=== PATIENT | female | born 1970 | race Caucasian/White ===

== ENCOUNTER 2017-02-01 05:23 | Day surgery (SDC) | payer OTHER ==
[~2017-02-01] VITALS: Ht 162.6 cm; Wt 87.5 kg
--- NOTE | ~2017-02-01 | H ---
[facility] [place] [address] HISTORY AND PHYSICAL Name: SAMMY LUNA Room #: 150-1 [facility] M.R.#: [id number] Admission: 02/01/17 Attend Phys: Manan Moore MD Discharge: Date of : 74 Report #: [id number] THIS REPORT FOR: //name// CC: Jenny Moore DATE OF SERVICE: 02/01/2017 Her procedure is scheduled for 02/01/2017. The patient suffered an injury to her face in mid October. A CT scan in the Emergency Room confirmed nasal fracture. For insurance purposes, she was denied care by another ENT doctor and it has been 17 weeks since her surgery, she has difficulty breathing through her nose and she has a deformity of the nasal dorsum. PAST MEDICAL HISTORY: Otherwise significant for diabetes and high blood pressure. ALLERGIES: She is allergic to CIPRO. PHYSICAL EXAMINATION: She has a depressed left nasal bone fracture and hourly displaced right nasal bone fracture with a C shape to the nasal dorsum. The bones are solid and healed at this point. She has a deviated nasal septum to the left side anteriorly and into the middle meatus on the right side. IMPRESSION: Nasal fracture, nasal septal fracture, deviated nasal septum. PLAN: Nasal septoplasty and an attempt at closed nasal reduction. <ELECTRONICALLY SIGNED> By: Manan Moore MD 02/01/17 0821 [id number] [id number] Manan Moore MD /robert
--- NOTE | ~2017-02-01 | EKG ---
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
--- NOTE | ~2017-02-01 | O ---
[facility] [place] [address] OPERATIVE REPORT Name: SAMMY LUNA Room #: DEP [facility] M.R.#: [id number] Admission: 02/01/17 Attend Phys: Manan Moore MD Discharge: 02/01/17 Date of : 74 Report #: [id number] THIS REPORT FOR: //name// CC: Jenny Moore DATE OF SERVICE: 02/01/2017 PREOPERATIVE DIAGNOSES: Nasal fracture and deviated nasal septum with nasal airway obstruction. POSTOPERATIVE DIAGNOSES: Nasal fracture and deviated nasal septum with nasal airway obstruction. OPERATIVE PROCEDURE: Closed nasal reduction and nasal septoplasty. ANESTHESIA: General by laryngeal mask. DESCRIPTION OF PROCEDURE: The patient was taken to the operating room and placed in supine position. General anesthesia was induced by laryngeal mask. Once adequate general anesthesia was obtained, local nasal anesthesia was induced by submucoperichondrial injection of 1% lidocaine with 1:100,000 epinephrine and topical application of cocaine solution. The patient was then draped in a sterile manner. The patient had a depressed right nasal bone fracture and an outwardly displaced left nasal bone fracture. Using a Boies elevator, I was able to reduce the fracture on the left side and then outwardly displace the fracture on the right side and the dorsum appeared to be more in the midline. A hemitransfixion incision was placed on the left side of the nose and the mucoperichondrium and mucoperiosteum were elevated off the septum. The cartilage was incised in front of the bony cartilaginous junction and a portion of cartilage and bone were removed from the midportion of the septum. There was septal spur along the floor consisting of hypertrophic cartilage and a fracture of the maxillary crest. The cartilage was removed as a long strip. The maxillary crest was infractured and rongeured. After these maneuvers, the septum sat more in the midline. The hemitransfixion incision was then closed with 4-0 chromic suture and a 4-0 plain mattress suture was placed as well. The patient tolerated the procedure well. Blood loss approximately 10 mL. The patient was then awoken and taken to the recovery room in stable condition for postoperative monitoring. By: 0828 [id number] Manan Moore MD /robert
[~2017-02-01 05:23] MED LIST: CLONAZEPAM 0.50.5 M1 PO; COMBIVENT RESPIM4 GM IH; IBUPROFEN 600600 M1 PO; VENTOLIN HFA 1818 GM INH
[2017-02-01 07:53] VITALS: BP 117/74
[2017-02-01] MEDS ORDERED: KEFLEX500 MG PO (08:24)
[2017-02-01] MEDS ORDERED: HYDROCODONE-APA1 TA1 PO (08:24)
[2017-02-01 08:44] VITALS: BP 117/74
== END 2017-02-01 09:32 | disposition home or self-care (01) ==
LOC: OR 05:23 → TBA 05:23 → OR 09:11
DX: J34.2 Deviated nasal septum (principal); J34.89 Other specified disorders of nose and nasal sinuses; S02.2XXA Fracture of nasal bones, initial encounter for closed fracture; J44.9 Chronic obstructive pulmonary disease, unspecified; I10 Essential (primary) hypertension; E11.9 Type 2 diabetes mellitus without complications; G47.33 Obstructive sleep apnea (adult) (pediatric); K21.9 Gastro-esophageal reflux disease without esophagitis; H40.10X0 Unspecified open-angle glaucoma, stage unspecified; F41.8 Other specified anxiety disorders; F31.9 Bipolar disorder, unspecified; F17.210 Nicotine dependence, cigarettes, uncomplicated; X58.XXXA Exposure to other specified factors, initial encounter; Y93.89 Activity, other specified; Y92.89 Other specified places as the place of occurrence of the external cause; Y99.8 Other external cause status; Z98.890 Other specified postprocedural states; Z88.8 Allergy status to other drugs, medicaments and biological substances; Z79.899 Other long term (current) drug therapy
CPT/HCPCS: 50010; 50101; 50386; 50398; 50426; 56524; 56528; 62110; 62900; 64037; 70005